=== PATIENT | male | born 1980 | race African-American/Black ===

== ENCOUNTER 2016-12-14 11:34 | Emergency (ER) | payer MEDICAID ==
[~2016-12-14] VITALS: Ht 167.6 cm; Wt 110.7 kg
[2016-12-14 11:53] VITALS: BP 132/72
[2016-12-14] MEDS ORDERED: HYDROCODONE/APAP 10/325MG 1 EA TABLET ONE (12:23)
[2016-12-14] MEDS ORDERED: IBUPROFEN 600 MG TABLET PO ONE ×2 (12:23→12:30)
[2016-12-14] MEDS ORDERED: HYDROCODONE/APAP 10/325MG 1 EA TABLET PO ONE (12:30)
== END 2016-12-14 12:39 | disposition home or self-care (01) ==
LOC: ER 11:39
DX: M54.2 Cervicalgia (principal); M54.5 Low back pain; J45.909 Unspecified asthma, uncomplicated; V49.40XA Driver injured in collision with unspecified motor vehicles in traffic accident, initial encounter; Y93.89 Activity, other specified; Y92.413 State road as the place of occurrence of the external cause; Y99.8 Other external cause status
CPT/HCPCS: A4606; Z7610